=== PATIENT | female | born 1940 | race Hispanic/Latino ===

== ENCOUNTER 2017-09-30 06:15 | Inpatient (IN) | payer MEDICARE, BC ==
[2017-09-17 15:54] VITALS: BMI 19.9
[2017-09-30] MEDS ORDERED: methylPREDNISolone Depo 80 mg/ml Inj ONE (07:07)
[2017-09-30] MEDS ORDERED: Absorbable Gelatin Sponge Size 100 ONE (07:08)
[2017-09-30] MEDS ORDERED: Thrombin Topical 5,000 IU Spray Kit ONE (07:08)
[2017-09-30] MEDS ORDERED: ceFAZolin IV 1 gm in Dextrose 1 GM/50 ML BAG IVPB ONE (07:08)
--- NOTE | 2017-09-30 07:15 | CP.PCM.HP ---
History of Present Illness - History of Present Illness History of Present Illness: CC: R Hip surgery HPI: This is a 76 y/o female with MHx significant for HLD, hypothyroidism, osteo and rheumatoid arthritis who comes in for a scheduled R hip surgery. Patient has no other c/c at this time. Denies CP, SOB, f/c/n/v/d. ROS: 14 systems reviewed, negative other than HPI MHx: HLD, hypothyroid, osteoarthritis, rheumatoid arthritis SHx: thyroidectomy, L knee, hysterectomy, gallbladder Allergies: codeine, causes nausea Medications: per med rec Family Hx: reviewed, no relevant findings Social Hx: Lives alone, social EtOH, no tobacco Lab/imaging from outside: CXR: No cardiopulmonary disease EKG: NSR, no acute findings Labs: WNL Present on Admission - Present on Admission Any Indicators Present on Admission: No Past Patient History - Past Medical History & Family History Past Medical History?: Yes - Past Social History Smoking Status: Never Smoked - CARDIAC Hx Hypercholesterolemia: Yes - PULMONARY Hx Respiratory Disorders: No - NEUROLOGICAL Hx Neurological Disorder: No - HEENT Hx HEENT Problems: No - RENAL Hx Chronic Kidney Disease: No - ENDOCRINE/METABOLIC Hx Endocrine Disorders: Yes Hx Hypothyroidism: Yes - HEMATOLOGICAL/ONCOLOGICAL Hx Blood Disorders: No Hx Anemia: No Hx Blood Transfusions: No - INTEGUMENTARY Hx Dermatological Problems: No - MUSCULOSKELETAL/RHEUMATOLOGICAL Hx Musculoskeletal Disorders: Yes Hx Arthritis: Yes Hx Back Pain: Yes Hx Falls: No Hx Osteoarthritis: Yes (BACK) Hx Rheumatoid Arthritis: Yes - GASTROINTESTINAL Hx Gastrointestinal Disorders: No - GENITOURINARY/GYNECOLOGICAL Hx Genitourinary Disorders: No - PSYCHIATRIC Hx Psychophysiologic Disorder: No - SURGICAL HISTORY Hx Surgeries: Yes Hx Hysterectomy: Yes Other/Comment: TOTAL THYROIDECTOMY;LEFT HIP AND LEFT KNEE SURGERY - ANESTHESIA Hx Anesthesia: Yes Hx Anesthesia Reactions: Yes (VOMITING) Hx Malignant Hyperthermia: No Has any member of the family had a problem w/ anesthesia?: No Meds Allergies/Adverse Reactions: Allergies Allergy/AdvReac Type Severity Reaction Status Date / Time codeine Allergy VOMITING Verified 09/30/17 06:53 Physical Exam - Constitutional Appears: Well - Head Exam Head Exam: ATRAUMATIC, NORMOCEPHALIC - Eye Exam Eye Exam: EOMI, PERRL - ENT Exam ENT Exam: Mucous Membranes Moist - Neck Exam Neck exam: Positive for: Full Rom - Respiratory Exam Respiratory Exam: Clear to Auscultation Bilateral, NORMAL BREATHING PATTERN - Cardiovascular Exam Cardiovascular Exam: Tachycardia, REGULAR RHYTHM, +S1, +S2 - GI/Abdominal Exam GI & Abdominal Exam: Normal Bowel Sounds, Soft - Extremities Exam Extremities exam: Positive for: full ROM, normal inspection - Neurological Exam Neurological exam: Alert, CN II-XII Intact, Oriented x3 - Psychiatric Exam Psychiatric exam: Normal Affect, Normal Mood - Skin Skin Exam: Dry, Warm Assessment & Plan (1) Aftercare following right hip joint replacement surgery Assessment and Plan: 76 y/o female pending scheduled R hip surgery for osteoarthritis. 1) Hip surgery -- plan to proceed with surgery this AM -routine aftercare post surgery 2) HLD -- continue statin 3) Hypothyroid -- continue synthroid 4) RA -- patient has been off Embrel for > 1 week Status: Acute (2) HLD (hyperlipidemia) Status: Acute (3) Hypothyroid Status: Acute (4) DVT prophylaxis Status: Acute
[2017-09-30] MEDS ORDERED: Phenylephrine 10 mg/ml Inj ONE (07:29)
[2017-09-30] MEDS ORDERED: Lidocaine 4% (Laryng-O-Jet) Kit MM ONE (07:29)
[2017-09-30] MEDS ORDERED: Rocuronium 10 mg/ml (5 ml) ONE ×2 (07:29→11:46)
[2017-09-30] MEDS ORDERED: Etomidate 20 mg/10ml Inj IV ONE (07:29)
[2017-09-30] MEDS ORDERED: Succinylcholine 200 mg/10 ml Inj IV ONE ×2 (07:29→11:09)
[2017-09-30] MEDS ORDERED: SENSORCAINE 0.5% W/EPINEPHRINE 50ML MDV IJ ONE (08:24)
[2017-09-30] MEDS ORDERED: Lactated Ringer's 1,000 ML IV ONE (08:35)
[2017-09-30] MEDS ORDERED: Sodium Chloride 0.9% 1,000 ML IV ONE (09:00)
[2017-09-30] MEDS ORDERED: Sevoflurane - Inhalation Anesthetic Liq (250 ml) ONE (09:33)
[2017-09-30] MEDS ORDERED: ePHEDrine 50 mg/ml Inj ONE (10:30)
[2017-09-30] MEDS ORDERED: Sodium Chloride 0.9% 250 ML IV ONE (12:00)
[2017-09-30] MEDS ORDERED: Neostigmine Methylsulfate 3mg/3ml Syringe IV ONE (12:46)
[2017-09-30] MEDS ORDERED: Sodium Chloride 0.9% 1,000 ML IV SCH (13:00)
[2017-09-30] MEDS ORDERED: HYDROmorphone 0.5 mg/0.5 ml ISec IVP PRN (13:21)
--- NOTE | 2017-09-30 13:29 | PCM.ANESB3 ---
Femoral Nerve Block - Femoral Nerve Block Date of Procedure: 09/30/17 Anesthesiologist: Ninoska Pre-Procedure Diagnosis: Right hip OA Post-Procedure Diagnosis: Same Procedure Performed: Femoral Nerve Block Right - Procedure Femoral Nerve Block: The procedure was explained to the patient that it is for the post-operative pain management. Consent was obtained after a thorough discussion with the patient regarding the benefits and possible complications of local anesthetic block of the femoral nerve at the inguinal crease area. The patient was brought to the operating room and standard monitors were applied. Time-out was held with the circulating nurse to confirm the correct surgery and the appropriate block. Under general anesthesia, patient was placed in supine position with fully extended lower extremities and the __right groin exposed. The femoral artery was then carefully palpated. The ultrasound transducer was then applied to this area in the transverse plane and the femoral nerve was visualized lateral to the femoral artery and underneath the fascia iliaca. After thorough identification, the inguinal crease area was prepped withChloraprep. At this point, a #22 gauge Stimuplex 4-inch needle was inserted immediately lateral to the femoral artery pulse at the inguinal crease and advanced perpendicularly. The needle was inserted to the ultrasound transducer in-plane towards the femoral nerve in a [id number] direction. Needle advancement was performed carefully under direct ultrasound visualization. . After negative aspiration, __2___cc of __0.25___% ___bupivicaine with 1:200,000 epinephrine____ was injected and this was followed with ___28___ cc of ___0.25___ _ % ____bupivicaine with 1:200,000 epinephrine . Under ultrasound guidance the local anesthetics were observed spreading below fascia iliaca and around the femoral nerve. The needle was removed intact. The patient tolerated the femoral nerve block well with stable vital signs and was prepared for subsequent surgery.
[2017-09-30] MEDS ORDERED: ceFAZolin IV 1 gm in Dextrose 1 GM/50 ML BAG IVPB SCH (13:30)
--- NOTE | 2017-09-30 14:17 | RAD ---
PROCEDURE: Right Hip Radiographs. HISTORY: post op right thr COMPARISON: None. FINDINGS: BONES: Satisfactory position alignment of components of right bipolar hip prosthesis. JOINTS: No evidence of subluxation or dislocation. SOFT TISSUES: Expected postoperative findings in the soft tissues at the surgical site. OTHER FINDINGS: None. IMPRESSION: Satisfactory postoperative status.
--- NOTE | 2017-09-30 15:20 | PCM.SURG1 ---
Surgeon's Initial Post Op Note - Surgeon's Notes Surgeon: Mendoza Tool Grinder: DMITRIY Hoyt Type of Anesthesia: General Endo, Block Regional Anesthesia Administered By: dr Stacy Loving Pre-Operative Diagnosis: Severe O/A R hip. leg length inequality R<L Operative Findings: as above. severe synovitis R hip. iliopsoas tendon contracture Post-Operative Diagnosis: as above Operation Performed: R THR. femoral neck osteotomy. arthrotomy synovectomy. release iliopsoas tendon. autograft bone graft (acetabulum). computer navigation Specimen/Specimens Removed: cartilage/ synovium/ bone Estimated Blood Loss: EBL {In ML}: 150 Blood Products Given: N/A Drains Used: No Drains Post-Op Condition: Good Date of Surgery/Procedure: 09/30/17 Time of Surgery/Procedure: 10:15 (time in room 8:35/anesthesia induction time)
--- NOTE | 2017-09-30 16:27 | RAD ---
PROCEDURE: Fluoroscopy for total hip replacement HISTORY: RIGHT HIP REPLACEMENT COMPARISON: None TECHNIQUE: Standard protocol for this study/examination. FINDINGS: Total exam DLP: (mGy): 1.08 IMPRESSION: Total fluoroscopic time (continuous mode) utilized during the procedure: 13.8 seconds.
[2017-09-30] MEDS ORDERED: Benzocaine/Menthol (Cepacol) Lozenge PO PRN (23:05)
[2017-10-01] MEDS: ceFAZolin IV 1 gm in Dextrose 1 GM/50 ML BAG IVPB SCH ×2 (00:39→08:48)
[2017-10-01] MEDS: Lactated Ringer's 1,000 ML IV SCH ×4 (03:13→15:45)
[2017-10-01] MEDS: Levothyroxine 100 MCG TAB PO SCH (06:29)
[2017-10-01] MEDS ORDERED: Oxycodone/Acetaminophen 5/325 mg Tab PO PRN (06:36)
[2017-10-01 07:05] LABS: HEMATOCRIT 27.1 % (34.0-47.0); MEAN CELL VOLUME 95.9 fl (81.0-99.0); MEAN CORPUSCULAR HEMOGLOBIN 31.7 pg (27.0-31.0); MEAN CORPUSCULAR HGB CONC 33.1 g/dL (33.0-37.0); RED CELL DISTRIBUTION WIDTH 13.7 % (11.5-14.5); WHITE BLOOD COUNT 9.1 K/uL (4.8-10.8)
[2017-10-01 07:16] LABS: BLOOD UREA NITROGEN 16 mg/dl (7-17); CARBON DIOXIDE 24 mmol/L (22-30); CHLORIDE 109 mmol/L (98-107); GFR AFRICAN-AMERICAN > 60; GLUCOSE,RANDOM 109 mg/dL (65-105); POTASSIUM 4.1 MMOL/L (3.6-5.0); SODIUM 139 mmol/l (132-148)
[2017-10-01 07:17] LABS: CALCIUM 7.1 mg/dL (8.4-10.2)
--- NOTE | 2017-10-01 08:23 | CP.PCM.PN ---
Subjective - Date & Time of Evaluation Date of Evaluation: 10/01/17 Time of Evaluation: 07:50 - Subjective Subjective: S- pt with minimal post op dsicomfort Objective - Vital Signs/Intake and Output Vital Signs (last 24 hours): Temp Pulse Resp BP Pulse Ox 97.6 F 109 H 19 95/58 L 100 10/01/17 04:00 10/01/17 04:00 10/01/17 04:00 10/01/17 04:00 10/01/17 04:00 - Medications Medications: Current Medications Acetaminophen (Tylenol 325mg Tab) 650 mg PO Q4 PRN PRN Reason: Fever 101 degrees fahrenheit Aspirin (Ecotrin) 81 mg PO Q12H [facility] Atorvastatin Calcium (Lipitor) 10 mg PO HS [facility] Last Admin: 09/30/17 22:12 Dose: 10 mg Benzocaine/Menthol (Cepacol Sore Throat) 1 natalie PO Q2 PRN PRN Reason: Sore Throat Last Admin: 09/30/17 23:21 Dose: 1 natalie Docusate Sodium (Colace) 100 mg PO BID [facility] Last Admin: 09/30/17 18:39 Dose: Not Given Folic Acid (Folic Acid) 1 mg PO DAILY [facility] Sodium Chloride (Sodium Chloride 0.9%) 1,000 mls @ 50 mls/hr IV .Q20H [facility] Stop: 10/01/17 08:59 Last Admin: 10/01/17 03:10 Dose: 50 mls/hr Lactated Ringer's (Lactated Ringer's) 1,000 mls @ 75 mls/hr IV .[id number] [facility] Last Admin: 10/01/17 03:13 Dose: Not Given Cefazolin Sodium/Dextrose (Ancef Iv 1 Gm Duplex) 1 gm in 50 mls @ 50 mls/hr IVPB Q8 [facility] PRN Reason: Protocol Last Admin: 10/01/17 00:39 Dose: 50 mls/hr Levothyroxine Sodium (Synthroid) 100 mcg PO DAILY@0630 [facility] Last Admin: 10/01/17 06:29 Dose: 100 mcg Ondansetron HCl (Zofran Inj) 4 mg IVP Q6 PRN PRN Reason: Nausea/Vomiting Oxycodone/Acetaminophen (Percocet 5/325 Mg Tab) 1 tab PO Q4 PRN PRN Reason: Pain, moderate (4-7) Stop: 10/04/17 06:37 - Labs Labs: 10/01/17 06:35 10/01/17 06:35 - Skin Additional comments: Objective stance/gait- defrred R hip wound benign N?V intact no gross/progressive deficits dressing dry and intact imp- orthopedicqally stable Assessment and Plan - Assessment and Plan (Free Text) Assessment: A- s/p R THR xrasy- excellent position of construct P- orthopedically stable weigth bearing to tolerance with walker
--- NOTE | 2017-10-01 08:41 | OP ---
PROCEDURE DATE: 09/30/2017 PREOPERATIVE DIAGNOSIS: Severe osteoarthritis of the right hip. POSTOPERATIVE DIAGNOSIS: Severe osteoarthritis of the right hip with leg-length inequality. PROCEDURES: 1. Right total hip replacement arthroplasty, anterior approach. 2. Femoral neck osteotomy. 3. Arthrotomy and synovectomy. 4. Release of iliopsoas tendon. 5. Autograft bone graft to the acetabulum. 6. Computer navigation with [employer] technology. SURGEON: Solomon Donaldson MD. CAR FERRIER: Margret Baires, certified registered nursing broker assistant. SECOND PIE CRIMPING MACHINE OPERATOR: Rohan Pitts. TYPE OF ANESTHESIA: Spinal and general anesthesia. ANESTHESIA ADMINISTERED BY: Ga Xiao MD. COMPLICATIONS: None. DRAINS: None. BLOOD LOSS: Approximately 150 mL. OPERATIVE INDICATIONS: Marleny Clarke is a 76-year-old woman who presents with pain and restricted range of motion of the right hip. The patient has had failure of conservative management consisting of anti-inflammatory medication, activity modification, and therapy. The patient ____. Pros, cons, risks, and benefits of surgical approach were discussed. Possibility of mechanical failure, ____ leg length inequality, nerve injury, ____ were discussed. The patient can no longer withstand the discomfort and wished the surgery to be accomplished. DESCRIPTION OF PROCEDURE: After having obtained informed consent in the above fashion, after having identified side, site and procedure and a critical pause/time-out, after a satisfactory induction of spinal and general anesthesia by Dr. Xiao, the patient is placed in the AMIS traction and under the surgeon's direction, the fluoroscope is positioned, video images are generated, therapeutic decisions are made therefrom. The well leg is positioned in the well-leg cortez. The AMIS positioner is employed on the operative side. It should be noted that both the right hip and the left iliac crest are prepped because the computer navigation requires 2 pins in the left ilium. After having obtained informed consent in the above fashion, again after having identified side, site, procedure, and a critical pause/time-out, after sterilely prepping and draping the right lower extremity for hip replacement surgery and the left hemipelvis. Under the surgeon's direction, a fluoroscope is positioned. Video images are generated. Therapeutic decisions are made therefrom. This having been accomplished, the left crest is first addressed at a point approximately 2 fingerbreadths posterior to the anterior-superior iliac spine, 2 incisions are accomplished using #11 blade followed by spreading. The two pins were placed and the optical accelerometer camera is positioned promptly favoring the proximal aspect of the right thigh, anticipate directed inferiorly. This having been accomplished, the navigation having been accomplished, the navigation set up having been accomplished, the right lower extremity having been prepped and draped, the EKG lead is placed just above the lateral epicondyle of the right femur to help with leg length. At this point in time, at a point approximately 1 fingerbreadth distal to the ASIS and 3 fingerbreadths proximal, the tensor fascia femoris muscle is identified. Using #10 blade, the skin incision is carried down through the skin and subcutaneous tissue. Hemostasis is controlled with electrocautery. The fascia is divided superficial to the tensor fascia femoris. The muscle is taken down from the tensor fascia femoris and the Medacta retractor is placed. The posterior aspect of the rectus femoris is identified, that fascia is controlled with the Aquamantys for hemostasis and the fascia is developed both sharply and bluntly. This having been accomplished, the Medacta retractor is placed deeper and the fascia superficial to the lateral femoral circumflex vessel is identified. The lateral femoral circumflex vessels are identified and they are controlled with the ligature and with the Aquamantys. This having been accomplished with the leg in internal rotation, the reflected head of rectus femoris is identified and released. This having been accomplished, with the lower extremity rotated back to neutral, the capsulotomy begins extending from the lateral aspect of the acetabulum. The Medacta retractors are placed medial and lateral to the neck and with external rotation, the capsulotomy is carried down to the intertrochanteric line. The intertubercular eminence is identified. The capsule is elevated and portion of the capsule is thinned. The hip is placed in neutral, verification of position is offered on image intensification views. The Medacta retractors having been placed, at this point in time, the femoral disc, the [employer] accelerometer based computer navigation is placed in the anterior aspect of the greater trochanter away from the femoral canal. This having been accomplished, the ASIS is registered on the left as well as the right. The EKG lead on the lateral aspect of the femur is registered and at this point in time, the femoral disc is registered. This having been accomplished, the femoral neck osteotomy is accomplished approximately 1.2 cm above the lesser trochanter. This having been accomplished, the lower extremity is externally rotated, the cut neck is exposed and the bone and the corkscrew is placed into the neck and at this point in time, the tracker and registration device is placed on the corkscrew and the femoral head is circulated and rotated to define the hip center. The femoral head is removed. At this point in time, there is found to be evidence of redundancy. The pubofemoral ligament is released and at this point in time, with external rotation of the femur with some traction, the acetabulum is identified. The labrum is excised. The reflected head of rectus femoris having been released, the Medacta retractor is placed superiorly and sequential reaming is carried out. The head measures 46 mm. Reaming is carried out to 54 mm. The 54-mm cup is trialed. A trialing using the Eyestormoint registration device, the registration is found to be acceptable with the acetabular position from approximately 40 degrees and 20 degrees. Trial is removed. At this point in time, the reamings are denuded of articular cartilage and the acetabulum is bone grafted. At this point in time, the cup is introduced in 40 degrees of abduction and 20 degrees of anteversion. Position is found to be acceptable. The cup is impacted, found to be stable withstanding the pelvic lift test with Zackary. The shell is impacted. Attention is turned to the femur. With external rotation of the femur, the pubofemoral ligament is released, the ischiofemoral ligament is released and the iliofemoral ligament is released. Great care is taken to control hemostasis with the Aquamantys. The femur is delivered into the wound. With flexion of the femur, external rotation and abduction, the proximal femur is exposed. The bridge of bone between the neck and the trochanter is removed. The broach is introduced and sequential broaching is carried out for a #2 femoral component. This is trialed with a +3.5 head ceramic and the outer bearing. The hip is reduced and found to be stable in all planes. This having been accomplished, the wound is thoroughly irrigated. Trialing is accomplished, found to be stable in all planes. Under the surgeon's direction, the fluoroscope is positioned, video images are generated, therapeutic decisions are made therefrom. Position is found to be acceptable. At this point in time, the broach is removed. The #2 Medacta stem is introduced with the +3.5 head and the 54-mm polyethylene outer bearing. This having been accomplished, the hip is reduced and at this point in time, the registration is confirmed with the Intell[employer]oint as the cup is in 40 degrees of abduction, 20 degrees of anteversion. The hip is reduced, found to be stable in all planes. The right lower extremity is lengthened 3 mm as per plan and the offset is found to be increased by 6 mm, which is excellent. The wound is thoroughly irrigated, the autograft bone grafting is carried out to the femur. The femoral disc is removed and that is autografted as well. The wound is thoroughly irrigated with IrriSept. Closure of the tensor fascia femoris is with 0 Quill, followed by 0 Quill, Vicryl and alaina for skin. A compression dressing is applied. The fonseca in the left ilium are closed with interrupted Vicryl and nylon and a compression dressing is applied. Postoperative position is excellent. It should be noted that the patient started approximately quarter of an inch short on the right side and this was lengthened as appropriately with the computer navigation. Solomon Donaldson MD
--- NOTE | 2017-10-01 09:09 | CP.PCM.CON ---
History of Present Illness - History of Present Illness History of Present Illness: THE PATIENT IS A 76 YEAR OLD FEMALE WITH A HISTORY OF RHEUMATOID ARTHRITIS, HYPERLIPIDEMIA AND IS S/P THYROIDECTOMY AND ON THYROID REPLACEMENT DTHERAPY. SHE UNDERWENT A RIGHT HIP REPLACEMENT YESTERDAY AND CARDIOLOGY WAS ASKED TO SEE AND FOLLOW HER POST-OP. SHE DENIES ANY HISTORY OF CHEST PAIN, CAD, HYPERTENSION OR DM. SHE ALSO HAS AN APENDECTOMY, CHOLECYSTECTOMY AND A HYSTERECTOMY. Past Patient History - Past Medical History & Family History Past Medical History?: Yes - Past Social History Smoking Status: Never Smoked - CARDIAC Hx Hypercholesterolemia: Yes - PULMONARY Hx Respiratory Disorders: No - NEUROLOGICAL Hx Neurological Disorder: No - HEENT Hx HEENT Problems: No - RENAL Hx Chronic Kidney Disease: No - ENDOCRINE/METABOLIC Hx Endocrine Disorders: Yes Hx Hypothyroidism: Yes - HEMATOLOGICAL/ONCOLOGICAL Hx Blood Disorders: No Hx Anemia: No Hx Blood Transfusions: No - INTEGUMENTARY Hx Dermatological Problems: No - MUSCULOSKELETAL/RHEUMATOLOGICAL Hx Musculoskeletal Disorders: Yes Hx Arthritis: Yes Hx Back Pain: Yes Hx Falls: No Hx Osteoarthritis: Yes (BACK) Hx Rheumatoid Arthritis: Yes - GASTROINTESTINAL Hx Gastrointestinal Disorders: No - GENITOURINARY/GYNECOLOGICAL Hx Genitourinary Disorders: No - PSYCHIATRIC Hx Psychophysiologic Disorder: No - SURGICAL HISTORY Hx Surgeries: Yes Hx Hysterectomy: Yes Other/Comment: TOTAL THYROIDECTOMY;LEFT HIP AND LEFT KNEE SURGERY - ANESTHESIA Hx Anesthesia: Yes Hx Anesthesia Reactions: Yes (VOMITING) Hx Malignant Hyperthermia: No Has any member of the family had a problem w/ anesthesia?: No Meds Allergies/Adverse Reactions: Allergies Allergy/AdvReac Type Severity Reaction Status Date / Time codeine Allergy VOMITING Verified 09/30/17 06:53 - Medications Medications: Current Medications Acetaminophen (Tylenol 325mg Tab) 650 mg PO Q4 PRN PRN Reason: Fever 101 degrees fahrenheit Aspirin (Ecotrin) 81 mg PO Q12H [facility] Last Admin: 10/01/17 08:45 Dose: 81 mg Atorvastatin Calcium (Lipitor) 10 mg PO HS [facility] Last Admin: 09/30/17 22:12 Dose: 10 mg Benzocaine/Menthol (Cepacol Sore Throat) 1 natalie PO Q2 PRN PRN Reason: Sore Throat Last Admin: 09/30/17 23:21 Dose: 1 natalie Docusate Sodium (Colace) 100 mg PO BID [facility] Last Admin: 10/01/17 08:45 Dose: 100 mg Folic Acid (Folic Acid) 1 mg PO DAILY [facility] Last Admin: 10/01/17 08:46 Dose: 1 mg Lactated Ringer's (Lactated Ringer's) 1,000 mls @ 75 mls/hr IV .[id number] [facility] Last Admin: 10/01/17 03:13 Dose: Not Given Cefazolin Sodium/Dextrose (Ancef Iv 1 Gm Duplex) 1 gm in 50 mls @ 50 mls/hr IVPB Q8 [facility] PRN Reason: Protocol Last Admin: 10/01/17 08:48 Dose: 50 mls/hr Levothyroxine Sodium (Synthroid) 100 mcg PO DAILY@0630 [facility] Last Admin: 10/01/17 06:29 Dose: 100 mcg Ondansetron HCl (Zofran Inj) 4 mg IVP Q6 PRN PRN Reason: Nausea/Vomiting Oxycodone/Acetaminophen (Percocet 5/325 Mg Tab) 1 tab PO Q4 PRN PRN Reason: Pain, moderate (4-7) Stop: 10/04/17 06:37 Physical Exam - Respiratory Exam Respiratory Exam: Clear to Auscultation Bilateral - Cardiovascular Exam Cardiovascular Exam: REGULAR RHYTHM - Additional Findings Additional findings: PAT EKG NSR CXR NAD Results - Vital Signs Recent Vital Signs: Last Vital Signs Temp 99.6 F 10/01/17 08:29 Pulse 118 H 10/01/17 08:29 Resp 18 10/01/17 08:29 BP 94/61 L 10/01/17 08:29 Pulse Ox 100 10/01/17 08:29 - Labs Result Diagrams: 10/01/17 06:35 10/01/17 06:35 Labs: Laboratory Results - last 24 hr 09/30/17 10/01/17 10/01/17 09:00 06:35 06:35 WBC 9.1 RBC 2.82 L Hgb 9.0 L Hct 27.1 L MCV 95.9 MCH 31.7 H MCHC 33.1 RDW 13.7 Plt Count 167 Sodium 139 Potassium 4.1 Chloride 109 H Carbon Dioxide 24 Anion Gap 10 BUN 16 Creatinine 0.8 Est GFR ( Amer) > 60 Est GFR (Non-Af Amer) > 60 Random Glucose 109 H Calcium 7.1 L Blood Type Confirm AB POSITIVE Assessment & Plan - Assessment and Plan (Free Text) Assessment: S/P RIGHT THR FOR RA HYPERLIPIDEMIA S/P THYROIDECTOMY Plan: CONTINUE ATORVASTATIN, ASPIRIN AND LEVOTHYROXINE
--- NOTE | 2017-10-01 11:58 | CP.PCM.PN ---
Subjective - Date & Time of Evaluation Date of Evaluation: 10/01/17 Time of Evaluation: 11:00 - Subjective Subjective: No fever mild pain sl nausea due to Opiate no CP no SOB no abd pain Objective - Vital Signs/Intake and Output Vital Signs (last 24 hours): Temp Pulse Resp BP Pulse Ox 99.6 F 111 H 18 91/55 L 100 10/01/17 08:29 10/01/17 11:15 10/01/17 08:29 10/01/17 11:15 10/01/17 11:15 - Medications Medications: Current Medications Acetaminophen (Tylenol 325mg Tab) 650 mg PO Q4 PRN PRN Reason: Fever 101 degrees fahrenheit Aspirin (Ecotrin) 81 mg PO Q12H [facility] Last Admin: 10/01/17 08:45 Dose: 81 mg Atorvastatin Calcium (Lipitor) 10 mg PO HS [facility] Last Admin: 09/30/17 22:12 Dose: 10 mg Benzocaine/Menthol (Cepacol Sore Throat) 1 natalie PO Q2 PRN PRN Reason: Sore Throat Last Admin: 09/30/17 23:21 Dose: 1 natalie Docusate Sodium (Colace) 100 mg PO BID [facility] Last Admin: 10/01/17 08:45 Dose: 100 mg Folic Acid (Folic Acid) 1 mg PO DAILY [facility] Last Admin: 10/01/17 08:46 Dose: 1 mg Lactated Ringer's (Lactated Ringer's) 1,000 mls @ 75 mls/hr IV .[id number] [facility] Last Admin: 10/01/17 03:13 Dose: Not Given Cefazolin Sodium/Dextrose (Ancef Iv 1 Gm Duplex) 1 gm in 50 mls @ 50 mls/hr IVPB Q8 [facility] PRN Reason: Protocol Last Admin: 10/01/17 08:48 Dose: 50 mls/hr Levothyroxine Sodium (Synthroid) 100 mcg PO DAILY@0630 [facility] Last Admin: 10/01/17 06:29 Dose: 100 mcg Ondansetron HCl (Zofran Inj) 4 mg IVP Q6 PRN PRN Reason: Nausea/Vomiting Oxycodone/Acetaminophen (Percocet 5/325 Mg Tab) 1 tab PO Q4 PRN PRN Reason: Pain, moderate (4-7) Stop: 10/04/17 06:37 Tramadol HCl (Ultram) 50 mg PO Q6 PRN PRN Reason: Pain, moderate (4-7) Last Admin: 10/01/17 09:48 Dose: 50 mg - Labs Labs: 10/01/17 06:35 10/01/17 06:35 - Constitutional Appears: Non-toxic, No Acute Distress - Head Exam Head Exam: NORMAL INSPECTION, NORMOCEPHALIC - Eye Exam Eye Exam: EOMI, Normal appearance Pupil Exam: NORMAL ACCOMODATION - ENT Exam ENT Exam: Mucous Membranes Moist, Normal External Ear Exam - Neck Exam Neck Exam: Full ROM. absent: Meningismus - Respiratory Exam Respiratory Exam: NORMAL BREATHING PATTERN. absent: Respiratory Distress - Cardiovascular Exam Cardiovascular Exam: REGULAR RHYTHM, +S1, +S2 - GI/Abdominal Exam GI & Abdominal Exam: Soft, Normal Bowel Sounds. absent: Tenderness - Extremities Exam Extremities Exam: Normal Capillary Refill. absent: Calf Tenderness, Pedal Edema Additional comments: right hip wound with dressing - Back Exam Back Exam: Full ROM. absent: CVA tenderness (L), CVA tenderness (R) - Neurological Exam Neurological Exam: Alert, Awake, CN II-XII Intact, Oriented x3 Neuro motor strength exam: Left Upper Extremity: 5, Right Upper Extremity: 5, Left Lower Extremity: 5, Right Lower Extremity: 5 - Psychiatric Exam Psychiatric exam: Normal Affect, Normal Mood - Skin Skin Exam: Dry, Normal Color, Warm Assessment and Plan (1) Primary osteoarthritis of right hip Status: Chronic (2) Aftercare following right hip joint replacement surgery Status: Acute (3) HLD (hyperlipidemia) Status: Chronic (4) Hypothyroid Status: Chronic (5) DVT prophylaxis Status: Acute - Assessment and Plan (Free Text) Assessment: 76 y/o lady with hx of of OA, HTN, HYpothyroidism, Hyperlipidemia, admitted for schedule Right THR. Underwent THR by Dr Donaldson. Doing well post op - plan for d/c to [facility] in am (1) Primary osteoarthritis of right hip Status: Chronic long hx of OA, failed conservative mgt (2) Aftercare following right hip joint replacement surgery Status: Acute Ortho : Dr Donaldson Pain mgt - pt prefers Tylenol, gets nausea with opiates pain controlled PT consulted- rec [facility] (3) HLD (hyperlipidemia) Status: Chronic cont statin (4) Hypothyroid Status: Chronic cont Levothyroxine 5. Mild acute blood loss Anemia, post op start Iron supplement (6) DVT prophylaxis Status: Acute ASA 81 mg bid
--- NOTE | 2017-10-01 22:31 | CARD ---
APPROVED REPORT EKG Measurement Heart [id number] <Conclusion> Sinus tachycardia Nonspecific T wave abnormality Abnormal ECG
[2017-10-02] MEDS: Lactated Ringer's 1,000 ML IV SCH ×2 (05:30→16:48)
[2017-10-02] MEDS: Levothyroxine 100 MCG TAB PO SCH (06:24)
[2017-10-02] MEDS ORDERED: Benzocaine/Menthol (Cepacol) Lozenge PO PRN (06:45)
[2017-10-02] MEDS: Pantoprazole 40 mg EC Tab PO SCH (08:54)
--- NOTE | 2017-10-02 10:26 | CP.PCM.DIS ---
Provider - Provider Date of Admission: 09/30/17 12:50 Attending physician: Sherice Domingo MD Primary care physician: Solomon Donaldson III, MD Time Spent in preparation of Discharge (in minutes): 30 Diagnosis - Discharge Diagnosis (1) Aftercare following right hip joint replacement surgery Status: Acute (2) HLD (hyperlipidemia) Status: Chronic (3) Hypothyroid Status: Chronic (4) Primary osteoarthritis of right hip Status: Chronic Hospital Course - Lab Results Lab Results: Most Recent Lab Values WBC 9.1 K/uL (4.8-10.8) 10/01/17 06:35 RBC 2.82 Mil/uL (3.80-5.20) L 10/01/17 06:35 Hgb 9.0 g/dL (12.0-16.0) L 10/01/17 06:35 Hct 27.1 % (34.0-47.0) L 10/01/17 06:35 MCV 95.9 fl (81.0-99.0) 10/01/17 06:35 MCH 31.7 pg (27.0-31.0) H 10/01/17 06:35 MCHC 33.1 g/dL (33.0-37.0) 10/01/17 06:35 RDW 13.7 % (11.5-14.5) 10/01/17 06:35 Plt Count 167 K/uL (130-400) 10/01/17 06:35 Sodium 139 mmol/l (132-148) 10/01/17 06:35 Potassium 4.1 MMOL/L (3.6-5.0) 10/01/17 06:35 Chloride 109 mmol/L (98-107) H 10/01/17 06:35 Carbon Dioxide 24 mmol/L (22-30) 10/01/17 06:35 Anion Gap 10 (10-20) 10/01/17 06:35 BUN 16 mg/dl (7-17) 10/01/17 06:35 Creatinine 0.8 mg/dL (0.7-1.2) 10/01/17 06:35 Est GFR ( Amer) > 60 10/01/17 06:35 Est GFR (Non-Af Amer) > 60 10/01/17 06:35 Random Glucose 109 mg/dL (65-105) H 10/01/17 06:35 Calcium 7.1 mg/dL (8.4-10.2) L 10/01/17 06:35 Blood Type AB POSITIVE 09/30/17 06:50 Blood Type Confirm AB POSITIVE 09/30/17 09:00 Antibody Screen Negative 09/30/17 06:50 Crossmatch See Detail 09/30/17 06:50 BBK History Checked No verified bt 09/30/17 06:50 - Hospital Course Hospital Course: 76 y/o lady with hx of of OA, HTN, HYpothyroidism, Hyperlipidemia, admitted for schedule Right THR. Underwent THR by Dr Donaldson. Doing well post op - plan for d/c to [facility] today. Patient stable for discharge today. (1) Primary osteoarthritis of right hip Status: Chronic long hx of OA, failed conservative mgt (2) Aftercare following right hip joint replacement surgery Status: Acute Ortho : Dr Donaldson Pain mgt - pt prefers Tylenol, gets nausea with opiates pain controlled PT consulted- rec [facility] (3) HLD (hyperlipidemia) Status: Chronic cont statin (4) Hypothyroid Status: Chronic cont Levothyroxine 5. Mild acute blood loss Anemia, post op start Iron supplement (6) DVT prophylaxis Status: Acute ASA 81 mg bid Discharge Exam - Head Exam Head Exam: ATRAUMATIC, NORMAL INSPECTION, NORMOCEPHALIC - Eye Exam Eye Exam: EOMI, Normal appearance, PERRL Pupil Exam: NORMAL ACCOMODATION - ENT Exam ENT Exam: Mucous Membranes Moist, Normal Oropharynx - Neck Exam Neck exam: Full Rom, Normal Inspection - Respiratory Exam Respiratory Exam: Clear to PA & Lateral, NORMAL BREATHING PATTERN - Cardiovascular Exam Cardiovascular Exam: RRR, +S1, +S2 - GI/Abdominal Exam GI & Abdominal Exam: Normal Bowel Sounds, Soft, Unremarkable. absent: Mass, Tenderness - Extremities Exam Extremities exam: normal capillary refill, pedal pulses present Additional comments: no calf tenderness - Back Exam Back exam: absent: CVA tenderness (L), CVA tenderness (R) - Neurological Exam Neurological exam: Alert, Oriented x3 - Psychiatric Exam Psychiatric exam: Normal Affect, Normal Mood - Skin Skin Exam: Dry, Normal Color, Warm Discharge Plan - Follow Up Plan Condition: GOOD Disposition: TRANSF TO [facility] Additional Instructions: patient to follow-up with both orthopedic surgery as well as primary care physician within a week. Referrals: Solomon Donaldson III, MD [Primary Care Provider] -
--- NOTE | 2017-10-02 10:28 | CP.PCM.PN ---
Subjective - Date & Time of Evaluation Date of Evaluation: 10/02/17 Time of Evaluation: 10:00 - Subjective Subjective: S- pt with no post op discomfort;compalining only of some residual nausea Objective - Vital Signs/Intake and Output Vital Signs (last 24 hours): Temp Pulse Resp BP Pulse Ox 99.4 F 74 20 115/67 99 10/02/17 07:41 10/02/17 07:41 10/02/17 07:41 10/02/17 07:41 10/02/17 07:41 - Medications Medications: Current Medications Acetaminophen (Tylenol 325mg Tab) 650 mg PO Q4 PRN PRN Reason: Fever 101 degrees fahrenheit Last Admin: 10/01/17 16:31 Dose: 650 mg Acetaminophen (Tylenol 325mg Tab) 650 mg PO Q4 PRN PRN Reason: Pain, moderate (4-7) Last Admin: 10/02/17 07:00 Dose: 650 mg Aspirin (Ecotrin) 81 mg PO Q12H [facility] Last Admin: 10/02/17 08:54 Dose: 81 mg Atorvastatin Calcium (Lipitor) 10 mg PO HS [facility] Last Admin: 10/01/17 22:10 Dose: 10 mg Benzocaine/Menthol (Cepacol Sore Throat) 1 natalie PO Q2 PRN PRN Reason: Sore Throat Docusate Sodium (Colace) 100 mg PO BID [facility] Last Admin: 10/02/17 08:53 Dose: 100 mg Ferrous Sulfate (Feosol) 325 mg PO BID [facility] Last Admin: 10/02/17 08:54 Dose: 325 mg Folic Acid (Folic Acid) 1 mg PO DAILY [facility] Last Admin: 10/02/17 08:54 Dose: 1 mg Lactated Ringer's (Lactated Ringer's) 1,000 mls @ 75 mls/hr IV .[id number] [facility] Last Admin: 10/02/17 05:30 Dose: 75 mls/hr Levothyroxine Sodium (Synthroid) 100 mcg PO DAILY@0630 [facility] Last Admin: 10/02/17 06:24 Dose: 100 mcg Ondansetron HCl (Zofran Inj) 4 mg IVP Q6 PRN PRN Reason: Nausea/Vomiting Pantoprazole Sodium (Protonix Ec Tab) 40 mg PO DAILY [facility] Last Admin: 10/02/17 08:54 Dose: 40 mg - Labs Labs: 10/01/17 06:35 10/01/17 06:35 - Additional Findings Additional findings: Obj systemic- wnl Musculoskeltal stance/gait- defrred R hip wound bening N/V intact Xrays- excellent position of construct Assessment and Plan - Assessment and Plan (Free Text) Assessment: A- s/p R THR P- orthopedically stable- OOB and ambulating well
[2017-10-02 10:34] LABS: HEMATOCRIT 23.9 % (34.0-47.0); MEAN CELL VOLUME 96.2 fl (81.0-99.0); MEAN CORPUSCULAR HEMOGLOBIN 31.4 pg (27.0-31.0); MEAN CORPUSCULAR HGB CONC 32.7 g/dL (33.0-37.0); RED CELL DISTRIBUTION WIDTH 13.8 % (11.5-14.5); WHITE BLOOD COUNT 9.8 K/uL (4.8-10.8)
--- NOTE | 2017-10-02 15:31 | CP.PCM.PN ---
Subjective - Date & Time of Evaluation Date of Evaluation: 10/02/17 Time of Evaluation: 15:31 - Subjective Subjective: patient seen and examined bedside status post right hip with Dr. Donaldson. No complaints at this time patient is hemodynamically stable no acute distress. Patient for discharge tomorrow to [facility]. Objective - Vital Signs/Intake and Output Vital Signs (last 24 hours): Temp Pulse Resp BP Pulse Ox 99.4 F 74 20 115/67 99 10/02/17 07:41 10/02/17 07:41 10/02/17 07:41 10/02/17 07:41 10/02/17 07:41 Physical exam: Constitutional- cooperative, awake, alert. Head- NCAT, PERRL Eye- PERRL, normal accommodation ENT- normal exam, MMM. Neck- normal inspection, supple, no JVD Respiratory- CTAB, no wheezes rales rhonchi Cardiovascular- RRR, +S1, +S2 no MRG GI/Abdominal- normal bowel sounds, soft, no mass, no hsm Skin- warm, dry Extremities Exam- normal capillary refill, normal inspection Neurological Exam- alert,neurovascularly intact Psych- normal mood, normal affect - Medications Medications: Current Medications Acetaminophen (Tylenol 325mg Tab) 650 mg PO Q4 PRN PRN Reason: Fever 101 degrees fahrenheit Last Admin: 10/01/17 16:31 Dose: 650 mg Acetaminophen (Tylenol 325mg Tab) 650 mg PO Q4 PRN PRN Reason: Pain, moderate (4-7) Last Admin: 10/02/17 07:00 Dose: 650 mg Aspirin (Ecotrin) 81 mg PO Q12H [facility] Last Admin: 10/02/17 08:54 Dose: 81 mg Atorvastatin Calcium (Lipitor) 10 mg PO HS [facility] Last Admin: 10/01/17 22:10 Dose: 10 mg Benzocaine/Menthol (Cepacol Sore Throat) 1 natalie PO Q2 PRN PRN Reason: Sore Throat Docusate Sodium (Colace) 100 mg PO BID [facility] Last Admin: 10/02/17 08:53 Dose: 100 mg Ferrous Sulfate (Feosol) 325 mg PO BID [facility] Last Admin: 10/02/17 08:54 Dose: 325 mg Folic Acid (Folic Acid) 1 mg PO DAILY [facility] Last Admin: 10/02/17 08:54 Dose: 1 mg Lactated Ringer's (Lactated Ringer's) 1,000 mls @ 75 mls/hr IV .[id number] [facility] Last Admin: 10/02/17 05:30 Dose: 75 mls/hr Levothyroxine Sodium (Synthroid) 100 mcg PO DAILY@0630 [facility] Last Admin: 10/02/17 06:24 Dose: 100 mcg Ondansetron HCl (Zofran Inj) 4 mg IVP Q6 PRN PRN Reason: Nausea/Vomiting Pantoprazole Sodium (Protonix Ec Tab) 40 mg PO DAILY [facility] Last Admin: 10/02/17 08:54 Dose: 40 mg - Labs Labs: 10/02/17 10:00 10/01/17 06:35 Assessment and Plan (1) Aftercare following right hip joint replacement surgery Status: Acute (2) HLD (hyperlipidemia) Status: Chronic (3) Hypothyroid Status: Chronic (4) Primary osteoarthritis of right hip Status: Chronic - Assessment and Plan (Free Text) Plan: 76 y/o lady with hx of of OA, HTN, HYpothyroidism, Hyperlipidemia, admitted for schedule Right THR. Underwent THR by Dr Donaldson. Doing well post op - plan for d/c to [facility] (1) Primary osteoarthritis of right hip Status: Chronic long hx of OA, failed conservative mgt (2) Aftercare following right hip joint replacement surgery Status: Acute Ortho : Dr Donaldson Pain mgt - pt prefers Tylenol, gets nausea with opiates pain controlled PT consulted- rec [facility] (3) HLD (hyperlipidemia) Status: Chronic cont statin (4) Hypothyroid Status: Chronic cont Levothyroxine 5. Mild acute blood loss Anemia, post op start Iron supplement (6) DVT prophylaxis Status: Acute ASA 81 mg bid
[2017-10-03] MEDS: Levothyroxine 100 MCG TAB PO SCH (06:40)
[2017-10-03 07:05] LABS: HEMATOCRIT 20.3 % (34.0-47.0); MEAN CELL VOLUME 94.7 fl (81.0-99.0); MEAN CORPUSCULAR HEMOGLOBIN 32.4 pg (27.0-31.0); MEAN CORPUSCULAR HGB CONC 34.2 g/dL (33.0-37.0); RED CELL DISTRIBUTION WIDTH 13.8 % (11.5-14.5); WHITE BLOOD COUNT 6.7 K/uL (4.8-10.8)
[2017-10-03] MEDS: Pantoprazole 40 mg EC Tab PO SCH (09:09)
--- NOTE | 2017-10-03 11:14 | CP.PCM.DIS ---
Provider - Provider Date of Admission: 09/30/17 12:50 Attending physician: Sherice Domingo MD Primary care physician: Solomon Donaldson III, MD Time Spent in preparation of Discharge (in minutes): 30 Diagnosis - Discharge Diagnosis (1) Aftercare following right hip joint replacement surgery Status: Acute (2) HLD (hyperlipidemia) Status: Chronic (3) Hypothyroid Status: Chronic (4) Primary osteoarthritis of right hip Status: Chronic Hospital Course - Lab Results Lab Results: Most Recent Lab Values WBC 6.7 K/uL (4.8-10.8) 10/03/17 05:30 RBC 2.14 Mil/uL (3.80-5.20) L 10/03/17 05:30 Hgb 6.9 g/dL (12.0-16.0) L 10/03/17 05:30 Hct 20.3 % (34.0-47.0) L 10/03/17 05:30 MCV 94.7 fl (81.0-99.0) 10/03/17 05:30 MCH 32.4 pg (27.0-31.0) H 10/03/17 05:30 MCHC 34.2 g/dL (33.0-37.0) 10/03/17 05:30 RDW 13.8 % (11.5-14.5) 10/03/17 05:30 Plt Count 134 K/uL (130-400) 10/03/17 05:30 Sodium 139 mmol/l (132-148) 10/01/17 06:35 Potassium 4.1 MMOL/L (3.6-5.0) 10/01/17 06:35 Chloride 109 mmol/L (98-107) H 10/01/17 06:35 Carbon Dioxide 24 mmol/L (22-30) 10/01/17 06:35 Anion Gap 10 (10-20) 10/01/17 06:35 BUN 16 mg/dl (7-17) 10/01/17 06:35 Creatinine 0.8 mg/dL (0.7-1.2) 10/01/17 06:35 Est GFR ( Amer) > 60 10/01/17 06:35 Est GFR (Non-Af Amer) > 60 10/01/17 06:35 Random Glucose 109 mg/dL (65-105) H 10/01/17 06:35 Calcium 7.1 mg/dL (8.4-10.2) L 10/01/17 06:35 Blood Type AB POSITIVE 09/30/17 06:50 Blood Type Confirm AB POSITIVE 09/30/17 09:00 Antibody Screen Negative 09/30/17 06:50 Crossmatch See Detail 10/03/17 10:10 BBK History Checked Patient has bt 10/03/17 10:10 - Hospital Course Hospital Course: 76 y/o lady with hx of of OA, HTN, HYpothyroidism, Hyperlipidemia, admitted for schedule Right THR. Underwent THR by Dr Donaldson. Doing well post op - plan for d/c to [facility] today after 2 UNITS [facility]. Primary osteoarthritis of right hip Status: Chronic long hx of OA, failed conservative mgt Aftercare following right hip joint replacement surgery Status: Acute Ortho : Dr Donaldson Pain mgt - pt prefers Tylenol, gets nausea with opiates pain controlled PT consulted- rec [facility] HLD (hyperlipidemia) Status: Chronic cont statin Hypothyroid Status: Chronic cont Levothyroxine acute blood loss Anemia, post op HEMOGLOBIN 6.9 TODAY PER ORTHO TRANSFUSE 2 UNITS [facility] AND D/C TO [facility] SCHEDULED. Mildly tachycardia however, BP stable HD stable NAD. * (6) DVT prophylaxis Status: Acute ASA 81 mg bid Discharge Exam - Head Exam Additional comments: Physical exam: Constitutional- cooperative, awake, alert. Head- NCAT, PERRL Eye- PERRL, normal accommodation ENT- normal exam, MMM. Neck- normal inspection, supple, no JVD Respiratory- CTAB, no wheezes rales rhonchi Cardiovascular- RRR, +S1, +S2 no MRG GI/Abdominal- normal bowel sounds, soft, no mass, no hsm Skin- warm, dryDRESSINGS CLEAN DRY AND IN PLACE Extremities Exam- normal capillary refill, normal inspectionPATIENT IS NEUROVASCULARLY INTACT Neurological Exam- alert, stable gait Psych- normal mood, normal affect Discharge Plan - Follow Up Plan Condition: GOOD Disposition: TRANSF TO SNF Additional Instructions: patient to follow-up with both orthopedic surgery as well as primary care physician within a week. Referrals: Solomon Donaldson III, MD [Primary Care Provider] -
[2017-10-03] MEDS: Lactated Ringer's 1,000 ML IV SCH (21:16)
[2017-10-04] MEDS: Levothyroxine 100 MCG TAB PO SCH (06:48)
[2017-10-04] MEDS: Lactated Ringer's 1,000 ML IV SCH ×2 (06:52→08:36)
[2017-10-04 07:27] LABS: HEMATOCRIT 32.7 % (34.0-47.0); MEAN CELL VOLUME 91.1 fl (81.0-99.0); MEAN CORPUSCULAR HEMOGLOBIN 31.1 pg (27.0-31.0); MEAN CORPUSCULAR HGB CONC 34.1 g/dL (33.0-37.0); RED CELL DISTRIBUTION WIDTH 14.7 % (11.5-14.5); WHITE BLOOD COUNT 6.1 K/uL (4.8-10.8)
[2017-10-04] MEDS: Pantoprazole 40 mg EC Tab PO SCH (08:35)
[2017-10-04 08:43] VITALS: BP 121/69; PULSE 111; RESP 20; TEMP 97.8; O2SAT 100
--- NOTE | 2017-10-04 09:34 | CP.PCM.PN ---
Subjective - Date & Time of Evaluation Date of Evaluation: 10/04/17 Time of Evaluation: 08:30 - Subjective Subjective: NO CHEST PAIN OR SOB RIGHT HIP TENDERNESS BUT OTHERWISE FEELS GOOD Objective - Vital Signs/Intake and Output Vital Signs (last 24 hours): Temp Pulse Resp BP Pulse Ox 97.8 F 111 H 20 121/69 100 10/04/17 08:42 10/04/17 08:42 10/04/17 08:42 10/04/17 08:42 10/04/17 08:42 - Medications Medications: Current Medications Acetaminophen (Tylenol 325mg Tab) 650 mg PO Q4 PRN PRN Reason: Fever 101 degrees fahrenheit Last Admin: 10/01/17 16:31 Dose: 650 mg Acetaminophen (Tylenol 325mg Tab) 650 mg PO Q4 PRN PRN Reason: Pain, moderate (4-7) Last Admin: 10/02/17 21:09 Dose: 650 mg Aspirin (Ecotrin) 81 mg PO Q12H [facility] Last Admin: 10/04/17 08:35 Dose: 81 mg Atorvastatin Calcium (Lipitor) 10 mg PO HS [facility] Last Admin: 10/03/17 21:29 Dose: Not Given Benzocaine/Menthol (Cepacol Sore Throat) 1 natalie PO Q2 PRN PRN Reason: Sore Throat Docusate Sodium (Colace) 100 mg PO BID [facility] Last Admin: 10/04/17 08:35 Dose: 100 mg Ferrous Sulfate (Feosol) 325 mg PO BID [facility] Last Admin: 10/04/17 08:34 Dose: 325 mg Folic Acid (Folic Acid) 1 mg PO DAILY [facility] Last Admin: 10/04/17 08:35 Dose: 1 mg Lactated Ringer's (Lactated Ringer's) 1,000 mls @ 75 mls/hr IV .[id number] [facility] Last Admin: 10/04/17 08:36 Dose: 75 mls/hr Levothyroxine Sodium (Synthroid) 100 mcg PO DAILY@0630 [facility] Last Admin: 10/04/17 06:48 Dose: 100 mcg Ondansetron HCl (Zofran Inj) 4 mg IVP Q6 PRN PRN Reason: Nausea/Vomiting Pantoprazole Sodium (Protonix Ec Tab) 40 mg PO DAILY [facility] Last Admin: 10/04/17 08:35 Dose: 40 mg - Labs Labs: 10/04/17 06:40 10/01/17 06:35 - Respiratory Exam Respiratory Exam: Clear to Ausculation Bilateral - Cardiovascular Exam Cardiovascular Exam: REGULAR RHYTHM, +S1 - Extremities Exam Additional comments: NO PRE-TIBIAL EDEMA JOSE'S SIGH NEGATIVE BILAT - Additional Findings Additional findings: H/H 05/11 YESTERDAY H/H TODAY AFTER BLOOD TRANSFUSION Assessment and Plan - Assessment and Plan (Free Text) Assessment: S/P RIGHT THR HYPERLIPIDEMIA Plan: CONTINUE ASPIRIN AND ATORVASTATIN FOR DISCHARGE TO REHAB FACILITY
--- NOTE | 2017-10-04 11:14 | CP.PCM.PN ---
Subjective - Date & Time of Evaluation Date of Evaluation: 10/04/17 Time of Evaluation: 07:35 - Subjective Subjective: S- pt in good spirits/Absolutely no R hip discomfort Objective - Vital Signs/Intake and Output Vital Signs (last 24 hours): Temp Pulse Resp BP Pulse Ox 97.8 F 111 H 20 121/69 100 10/04/17 09:00 10/04/17 09:00 10/04/17 09:00 10/04/17 09:00 10/04/17 09:00 - Medications Medications: Current Medications Acetaminophen (Tylenol 325mg Tab) 650 mg PO Q4 PRN PRN Reason: Fever 101 degrees fahrenheit Last Admin: 10/01/17 16:31 Dose: 650 mg Acetaminophen (Tylenol 325mg Tab) 650 mg PO Q4 PRN PRN Reason: Pain, moderate (4-7) Last Admin: 10/02/17 21:09 Dose: 650 mg Aspirin (Ecotrin) 81 mg PO Q12H [facility] Last Admin: 10/04/17 08:35 Dose: 81 mg Atorvastatin Calcium (Lipitor) 10 mg PO HS [facility] Last Admin: 10/03/17 21:29 Dose: Not Given Benzocaine/Menthol (Cepacol Sore Throat) 1 natalie PO Q2 PRN PRN Reason: Sore Throat Docusate Sodium (Colace) 100 mg PO BID [facility] Last Admin: 10/04/17 08:35 Dose: 100 mg Ferrous Sulfate (Feosol) 325 mg PO BID [facility] Last Admin: 10/04/17 08:34 Dose: 325 mg Folic Acid (Folic Acid) 1 mg PO DAILY [facility] Last Admin: 10/04/17 08:35 Dose: 1 mg Lactated Ringer's (Lactated Ringer's) 1,000 mls @ 75 mls/hr IV .[id number] [facility] Last Admin: 10/04/17 08:36 Dose: 75 mls/hr Levothyroxine Sodium (Synthroid) 100 mcg PO DAILY@0630 [facility] Last Admin: 10/04/17 06:48 Dose: 100 mcg Ondansetron HCl (Zofran Inj) 4 mg IVP Q6 PRN PRN Reason: Nausea/Vomiting Pantoprazole Sodium (Protonix Ec Tab) 40 mg PO DAILY [facility] Last Admin: 10/04/17 08:35 Dose: 40 mg - Labs Labs: 10/04/17 06:40 10/01/17 06:35 - Skin Additional comments: Objective stance/gait- defrreR hip ROM painless thigh soft no evidence for active bleeding Post transusion H/H 11.2 Assessment and Plan - Assessment and Plan (Free Text) Assessment: A- s/p R THR Fullweight bearing orthopedically stable for d/c weight bearinmg to toleranc with walker
== END 2017-10-04 11:00 | DRG 470 ==
LOC: H.OPSURG 06:15 → H.MEDSURG1 12:50
PROVIDERS: ADMIT Internal Medicine; ATTEND Internal Medicine
PROC: 0SB90ZZ Excision of Right Hip Joint, Open Approach (ICD-10-PCS; 2017-09-30)
PROC: 3E0T3BZ Introduction of Anesthetic Agent into Peripheral Nerves and Plexi, Percutaneous Approach (ICD-10-PCS; 2017-09-30)
PROC: 8E0YXBF Computer Assisted Procedure of Lower Extremity, With Fluoroscopy (ICD-10-PCS; principal; 2017-09-30 09:15)
PROC: 0SR903Z Replacement of Right Hip Joint with Ceramic Synthetic Substitute, Open Approach (ICD-10-PCS; 2017-09-30 09:15)
DX: M16.11 Unilateral primary osteoarthritis, right hip (principal); M06.9 Rheumatoid arthritis, unspecified; D62 Acute posthemorrhagic anemia; Z88.6 Allergy status to analgesic agent; E78.5 Hyperlipidemia, unspecified; E03.9 Hypothyroidism, unspecified; M21.70 Unequal limb length (acquired), unspecified site; M65.9 Synovitis and tenosynovitis, unspecified; I10 Essential (primary) hypertension; E78.00 Pure hypercholesterolemia, unspecified